=== PATIENT | male | born 1945 | race Caucasian/White ===

== ENCOUNTER 2019-10-19 11:30 | Day surgery (SDC) | payer MEDICARE, BC ==
[2019-10-16 09:58] VITALS: BMI 28.0
[~2019-10-19 11:30] MED LIST: Dexamethasone 20 MG/5 ML VIAL ONE; Lidocaine 1% PF 5 ML VIAL ONE; Ondansetron PF 4 MG/2 ML Vial ONE; PROPOFOL 200 MG/20 ML VIAL ONE; ePHEDrine/0.9% NaCl/PF SYRINGE 50 mg/10 ml ONE
--- NOTE | 2019-10-19 14:15 | RAD ---
CERVICAL SPINE SERIES WITH FLEXION AND EXTENSION 5 VIEWS: Date: 10/19/2019 HISTORY: Neck pain. FINDINGS: The vertebral bodies are normal in height. There is degenerative disc narrowing at the C3-4 level. Th ere is a retrolisthesis of C3 on C4, which I do not see changes appreciably between flexion and neutr al views and may become very minimally accentuated in extension. There is also disc narrowing at C5-6 . There appears to be some development of minimal retrolisthesis at this level in the extension view. Minimal anterolisthesis of C6 on C7 and C7 on T1 are stable. IMPRESSION: Arthritic changes of the spine as discussed above. POS: [facility]
--- NOTE | 2019-10-19 14:59 | MRI ---
MRI CERVICAL SPINE WITHOUT CONTRAST: History: M54.2 cervical pain. Comparison: Radiograph same day. Findings: Cerebellar tonsils terminate at the level of the foramen magnum. There is normal cord signal. No marrow infiltrative process. Paraspinal musculature is symmetric. 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 Levels are as follows: C2-C3: Mild uncinate process hypertrophy. No neural foraminal or spinal canal narrowing. C3-C4: Advanced posterior degenerative disc space height loss. 3 mm C3 over C4 retrolisthesis. There is posterior displacement of disc material as an adaptation to subluxation. Mild ligamentum flavum hypertrophy. Spinal canal is narrowed to approximately 9 mm with anterior cord abutment. Moderate to severe hypertrophic facet arthrosis. Moderate left and moderate to severe right neural foraminal narrowing. C4-C5: Mild degenerative disc space height loss. High-grade facet arthrosis. Mild uncinate process hy pertrophy. 1-2 mm anterolisthesis. Osteophyte formation and uncinate process hypertrophy causes moderate bilateral neural foraminal narrowing. C5-C6: Advanced posterior degenerative disc space height loss. Severe right and moderate to severe le ft hypertrophic facet arthrosis. Mild improvement hypertrophy. Moderate uncinate process hypertrophy. Moderate bilateral neural foraminal narrowing. C6-C7: Broad-based posterior disc bulge. Moderate hypertrophic facet arthrosis. There is a right face t joint effusion. No significant neural foraminal or spinal canal narrowing. C7-T1: 1 mm anterolisthesis. No neural foraminal or spinal canal narrowing. Bilateral exiting nerve r oot synovial cyst. Impression: Moderate to advanced spondylosis cervical spine as described, greatest at C3-C4. Transcribed Date/Time: 10/19/2019 3:54 PM
== END 2019-10-19 13:55 | disposition home or self-care (01) ==
LOC: SDC/OP 11:30
PROVIDERS: ATTEND Neurological Surgery
DX: M47.812 Spondylosis without myelopathy or radiculopathy, cervical region (principal); M79.0 Rheumatism, unspecified; Z79.899 Other long term (current) drug therapy
CPT/HCPCS: 72052; 72141; J1100; J2001; J2405; J2704

== ENCOUNTER 2020-10-27 08:57 | Outpatient (CLI) | payer MEDICARE, BC ==
--- NOTE | 2020-10-27 15:19 | NM ---
Nuclear medicine [facility] SPECT brain: DATE: 10/27/2020 HISTORY: 75-year-old male with nonspecific tremor. Possible early parkinsonism. TECHNIQUE: Premedication administered PO 1 hour prior to injection:130 mg. Radiopharmaceutical administered IV 3 hours prior to scan:4.7 mCi I-123 Ioflupane. Axial SPECT of brain performed. FINDINGS: Uptake in caudate nuclei:Bilaterally symmetrical. Uptake in the putamina:Bilaterally symmetrical. IMPRESSION: Negative. No evidence of Parkinson's disease.
== END 2020-10-27 08:58 | disposition home or self-care (01) ==
LOC: NM 08:57
PROVIDERS: ATTEND Psychiatry & Neurology Neurology
DX: G47.52 REM sleep behavior disorder (principal); R25.1 Tremor, unspecified
CPT/HCPCS: 78803; A9584